=== PATIENT | female | born 1995 | race Two or more races ===

== ENCOUNTER 2022-01-16 12:35 | Outpatient (CLI) | payer OTHER ==
[~2022-01-16] VITALS: Ht 165.1 cm; Wt 78.9 kg
[2022-01-16] MEDS ORDERED: MUCI1LIQ3 PO (12:56)
[2022-01-16] MEDS ORDERED: PRENTAB9 PO (12:56)
[2022-01-16 13:02] VITALS: BP 102/59
[2022-01-16 13:47] LABS: HEMOGLOBIN 12.2 g/dl (12.0-15.5); MEAN CORPUSCULAR HEMOGLOBIN 31.1 pg (27.0-33.0); MEAN CORPUSCULAR HGB CONC 33.9 g/dl (32.0-36.5); MEAN CORPUSCULAR VOLUME 91.8 fl (80.0-96.0); PLATELET COUNT, AUTOMATED 236 10^3/uL (150-450); RED BLOOD COUNT 3.92 10^6/uL (4.00-5.40); WHITE BLOOD COUNT 12.5 10^3/uL (4.0-10.0)
== END 2022-01-16 14:25 | disposition home or self-care (01) ==
LOC: M LDO 12:35
PROVIDERS: ATTEND Obstetrics & Gynecology
DX: O26.892 Other specified pregnancy related conditions, second trimester (principal); R25.2 Cramp and spasm; Z3A.22 22 weeks gestation of pregnancy; Z88.0 Allergy status to penicillin
CPT/HCPCS: 36415; 59025; 76815; 81001; 85027; G0463

== ENCOUNTER → 2022-03-15 | Outpatient (CLI) | payer OTHER ==
[~2022-03-15] MED LIST: MUCI1LIQ3 PO; PRENTAB9 PO
== END ==
LOC: M WHC 12:32
PROVIDERS: ATTEND Registered Nurse
DX: N64.4 Mastodynia (principal)

== ENCOUNTER 2022-04-06 21:04 | Outpatient (CLI) | payer OTHER ==
[~2022-04-06] VITALS: Ht 165.1 cm; Wt 86.2 kg
[2022-04-06 21:30] VITALS: BP 104/59
[2022-04-06 22:49] LABS: AMORPHOUS SEDIMENT SMALL (NEGATIVE); APPEARANCE, URINE CLOUDY (CLEAR); BACTERIA, URINE AUTO NEGATIVE (NEGATIVE); BILIRUBIN, URINE AUTO NEGATIVE (NEGATIVE); BLOOD, URINE BLOOD NEGATIVE (NEGATIVE); COLOR, URINE YELLOW (YELLOW); GLUCOSE, URINE (UA) AUTO 1+ mg/dL (NEGATIVE); KETONE, URINE AUTO 1+ mg/dL (NEGATIVE); LEUKOCYTE ESTERASE, URINE AUTO TRACE (NEGATIVE); MUCUS, URINE SMALL (NEGATIVE); NITRITE, URINE AUTO NEGATIVE (NEGATIVE); PROTEIN, URINE AUTO NEGATIVE (NEGATIVE); RBC, URINE AUTO 0 /HPF (0-3); SPECIFIC GRAVITY URINE AUTO 1.015 (1.002-1.035); SQUAMOUS EPITHELIAL CELL UR AU 7 /HPF (0-6); UROBILINOGEN, URINE AUTO 0.2 mg/dL (0.0-2.0); WBC, URINE AUTO 3 /HPF (0-3)
[2022-04-07 00:58] LABS: GC DNA AMPLIFICATION NEGATIVE (NEGATIVE)
== END 2022-04-07 00:09 | disposition home or self-care (01) ==
LOC: M LDO 21:04
PROVIDERS: ATTEND Obstetrics & Gynecology
DX: O26.893 Other specified pregnancy related conditions, third trimester (principal); R25.2 Cramp and spasm; Z3A.33 33 weeks gestation of pregnancy; Z88.0 Allergy status to penicillin; N37 Urethral disorders in diseases classified elsewhere
CPT/HCPCS: 59025; 81001; 87086; 87810; 87850; G0378; G0463

== ENCOUNTER 2022-05-10 21:15 | Outpatient (CLI) | payer OTHER ==
[~2022-05-10] VITALS: Ht 165.1 cm; Wt 88.5 kg
[2022-05-10 21:30] VITALS: BP 117/65
== END 2022-05-10 22:20 | disposition home or self-care (01) ==
LOC: M LDO 21:15
PROVIDERS: ATTEND Obstetrics & Gynecology
DX: O26.893 Other specified pregnancy related conditions, third trimester (principal); R55 Syncope and collapse; Z3A.38 38 weeks gestation of pregnancy; O47.1 False labor at or after 37 completed weeks of gestation; Z88.0 Allergy status to penicillin; Z88.1 Allergy status to other antibiotic agents
CPT/HCPCS: 59025; 87081; 87186; G0463

== ENCOUNTER 2022-05-13 21:04 | Inpatient (IN) | payer OTHER ==
[~2022-05-13] VITALS: Ht 165.1 cm; Wt 89.6 kg
[2022-05-13 21:24] VITALS: BP 100/63
[2022-05-13] MEDS ORDERED: LIDOCAINE 1% MDV 20ML VIAL INFIL PRN (21:55)
[2022-05-13] MEDS ORDERED: METHYLERGONOVINE MALEATE 0.2 MG/ML VIAL (J2210) IM PRN (21:55)
[2022-05-13] MEDS ORDERED: OXYTOCIN DRIP 30 UNITS in IV 1 EA IV PRN ×4 (21:55)
[2022-05-13] MEDS ORDERED: TRANEXAMIC ACID INJection 1,000 MG in NS 100 ML IV PRN (21:55)
[2022-05-13 22:25] LABS: HEMATOCRIT 36.3 % (36.0-47.0); HEMOGLOBIN 12.8 g/dl (12.0-15.5); MEAN CORPUSCULAR HEMOGLOBIN 31.9 pg (27.0-33.0); MEAN CORPUSCULAR HGB CONC 35.3 g/dl (32.0-36.5); MEAN CORPUSCULAR VOLUME 90.5 fl (80.0-96.0); PLATELET COUNT, AUTOMATED 154 10^3/uL (150-450); RED BLOOD COUNT 4.01 10^6/uL (4.00-5.40); WHITE BLOOD COUNT 12.9 10^3/uL (4.0-10.0)
[2022-05-13 22:39] VITALS: BP 123/76
[2022-05-13] MEDS: LR 1,000 ML IV SCH (23:47)
[2022-05-14] VITALS (61 sets, daily range): BP systolic 72–136; BP diastolic 48–101
[2022-05-14] MEDS ORDERED: FENTANYL 2MCG/ML ROPIVACAINE 0.2% IN 0.9% NACL 100ML IVBAG As Ordered ONE (00:38)
[2022-05-14] MEDS ORDERED: EPIDURAL/PCA KEYS XX PRN (01:40)
[2022-05-14] MEDS ORDERED: diphenhydrAMINE 50MG/ML VIAL (J1200) IV PRN (01:40)
[2022-05-14] MEDS ORDERED: ONDANSETRON 4MG 2ML VIAL IV PRN ×2 (01:40→10:40)
[2022-05-14] MEDS ORDERED: LR 500 ML IV PRN (01:40)
[2022-05-14] MEDS ORDERED: NALOXONE INJ 0.4MG/1ML VIAL (J2310 PER 1MG) IV PRN (01:40)
[2022-05-14] MEDS ORDERED: FENTANYL/ROPIVACAINE/NACL BAG 100 ML EPIDURAL SCH (01:40)
[2022-05-14] MEDS: ePHEDrine SULFATE 25 MG/5 ML(5MG/ML) SYRINGE IVP PRN ×3 (02:05→07:51)
[2022-05-14] MEDS ORDERED: OXYTOCIN DRIP 30 UNITS in IV 1 EA IV SCH ×2 (03:30→10:40)
[2022-05-14] MEDS: LR 1,000 ML IV SCH (06:37)
[2022-05-14 10:22] LABS: CORD GAS ABE V -7.3; CORD GAS HCO3 V 18.7 MEQ/L; CORD GAS PCO2 V 39.5 mmHg; CORD GAS PH V 7.293 UNITS; CORD GAS PO2 V 31.6 mmHg; CORD GAS SBC V 18.1 MEQ/L; CORD GAS TCO2 V 19.9 MEQ/L
[2022-05-14 10:25] LABS: CORD GAS ABE A -15.6; CORD GAS HCO3 A 14.7 MEQ/L; CORD GAS O2 SAT A 83.7 %; CORD GAS PH A 7.077 UNITS; CORD GAS SBC A 12.8 MEQ/L; CORD GAS TCO2 A 16.2 MEQ/L
[2022-05-14] MEDS ORDERED: LR 1,000 ML IV SCH (10:40)
[2022-05-14] MEDS ORDERED: METHYLERGONOVINE MALEATE 0.2 MG TAB PO PRN (10:40)
[2022-05-14] MEDS ORDERED: PROMETHAZINE 25 MG TAB PO PRN (10:40)
[2022-05-14] MEDS ORDERED: DIBUCAINE 1% OINTMENT 30GM TOP PRN (10:40)
[2022-05-14] MEDS ORDERED: RHOGAM 300 MCG (1500 IU) INJ (J2790) IM SCH (10:40)
[2022-05-14] MEDS ORDERED: DOCUSATE SODIUM 100MG CAPSULE PO PRN (10:40)
[2022-05-14] MEDS: IBUPROFEN 800 MG TAB PO SCH ×3 (11:15→18:35)
[2022-05-14] MEDS: ACETAMINOPHEN 500 MG TAB PO SCH ×3 (11:15→22:45)
[2022-05-15] MEDS ORDERED: IBUPROFEN 800 MG TAB PO ONE (03:00)
[2022-05-15] MEDS: ACETAMINOPHEN 500 MG TAB PO SCH (04:56)
[2022-05-15 06:00] VITALS: BP 103/57
[2022-05-15 06:51] LABS: HEMATOCRIT 31.8 % (36.0-47.0); MEAN CORPUSCULAR HEMOGLOBIN 31.1 pg (27.0-33.0); MEAN CORPUSCULAR HGB CONC 33.6 g/dl (32.0-36.5); MEAN CORPUSCULAR VOLUME 92.4 fl (80.0-96.0); PLATELET COUNT, AUTOMATED 115 10^3/uL (150-450); RED BLOOD COUNT 3.44 10^6/uL (4.00-5.40); WHITE BLOOD COUNT 16.9 10^3/uL (4.0-10.0)
[2022-05-15 07:12] LABS: HEMOGLOBIN 10.7 g/dl (12.0-15.5)
[2022-05-15] MEDS ORDERED: IBUP80TA PO (07:26)
[2022-05-15] MEDS ORDERED: ACET-683 PO (07:26)
[2022-05-15] MEDS ORDERED: COLA100C5 PO (07:26)
[2022-05-15] MEDS ORDERED: PRENATAL VITAMINS CHEWABLE TABLET PO SCH ×2 (09:00)
[2022-05-16] MEDS ORDERED: MEASLES,MUMPS,RUBELLA VACCINE INJ (MMR-II) (90707) SC.IMMUN ONE (09:00)
== END 2022-05-15 10:00 | disposition home or self-care (01) | DRG 807 ==
LOC: M LDO 21:04 → M LDI 21:43 → M OBS 05-14 11:44
PROVIDERS: ADMIT Obstetrics & Gynecology; ATTEND Obstetrics & Gynecology
PROC: 10E0XZZ Delivery of Products of Conception, External Approach (ICD-10-PCS; principal; 2022-05-14)
DX: O80 Encounter for full-term uncomplicated delivery (principal); Z37.0 Single live birth; Z3A.38 38 weeks gestation of pregnancy; Z88.0 Allergy status to penicillin